=== PATIENT | female | born 1945 | race Caucasian/White ===

== ENCOUNTER 2018-03-31 14:44 | Emergency (ER) | payer OTHER ==
[~2018-03-31] VITALS: Ht 162.6 cm; Wt 59.1 kg
[2018-03-31 14:46] VITALS: BP 181/80
[2018-03-31] MEDS ORDERED: METHOCARBAMOL 500 MG TABLET PO ONE (15:30)
[2018-03-31] MEDS ORDERED: METHOCARBAMOL 750 MG TABLET PO ONE (16:00)
[2018-03-31] MEDS ORDERED: METHOCARBAMOL 750 MG TABLET ONE (16:03)
== END 2018-03-31 16:45 | disposition home or self-care (01) ==
LOC: ED 16:39
DX: S16.1XXA Strain of muscle, fascia and tendon at neck level, initial encounter (principal); S89.92XA Unspecified injury of left lower leg, initial encounter; E78.00 Pure hypercholesterolemia, unspecified; W01.0XXA Fall on same level from slipping, tripping and stumbling without subsequent striking against object, initial encounter; Y93.01 Activity, walking, marching and hiking; Y92.89 Other specified places as the place of occurrence of the external cause; Y99.8 Other external cause status
CPT/HCPCS: 72125; 99284

== ENCOUNTER → 2018-08-13 | Outpatient (CLI) | payer OTHER | END | disposition home or self-care (01) | LOC: RAD 15:19 | PROVIDERS: ATTEND Internal Medicine | DX: M47.897 Other spondylosis, lumbosacral region (principal); M17.12 Unilateral primary osteoarthritis, left knee | CPT/HCPCS: 72100 ==